=== PATIENT | female | born 1945 | race Caucasian/White ===

== ENCOUNTER 2021-05-09 16:33 | Emergency (ER) | payer MEDICARE | END 2021-05-09 17:16 | disposition home or self-care (01) | LOC: ER1 16:33 | DX: U07.1 COVID-19 (principal); E11.9 Type 2 diabetes mellitus without complications | CPT/HCPCS: 99283 ==

== ENCOUNTER 2021-05-13 11:04 | Observation (INO) | payer MEDICARE ==
[~2021-05-13] VITALS: Ht 160 cm; Wt 69.4 kg
[2021-05-13 13:53] LABS: HEMOGLOBIN 13.5 gm/dl (12.3-15.3); RED BLOOD COUNT 4.51 M/UL (4.00-5.10); WHITE BLOOD COUNT 11.7 K/UL (4.5-11.0)
[2021-05-13] MEDS ORDERED: LOSARTAN POTAS100 MG PO (16:35)
[2021-05-13] MEDS ORDERED: CLONIDINE1 EAC1 TD (16:35)
[2021-05-13] MEDS ORDERED: FUROSEMIDE40 MG PO (16:36)
[2021-05-13] MEDS ORDERED: TOPROL XL100 MG PO (16:36)
[2021-05-13] MEDS ORDERED: METFORMIN HCL500 MG PO (16:36)
[2021-05-13] MEDS ORDERED: VERAPAMIL HCL360 MG PO (16:37)
[2021-05-13] MEDS ORDERED: PROTONIX 40 MG40 M1 PO (16:37)
[2021-05-13] MEDS ORDERED: HYDRALAZINE HC100 MG PO (16:37)
[2021-05-13] MEDS ORDERED: CLONIDINE HCL0.1 MG PO (16:56)
[2021-05-13] MEDS ORDERED: ASCORBIC ACID500 MG PO (16:57)
[2021-05-13] MEDS ORDERED: ZINC50 M1 PO (16:57)
[2021-05-13] MEDS ORDERED: VITAMIN B-121000 MCG PO (16:57)
[2021-05-13] MEDS ORDERED: VITAMIN D 40400 UNIT PO (16:58)
[2021-05-14 05:30] LABS: HEMOGLOBIN 12.5 gm/dl (12.3-15.3); RED BLOOD COUNT 4.25 M/UL (4.00-5.10)
[2021-05-14 05:36] LABS: WHITE BLOOD COUNT 8.5 K/UL (4.5-11.0)
[2021-05-15] MEDS ORDERED: HYDRALAZINE HCL25 MG PO (16:45)
[2021-05-15] MEDS ORDERED: ELIQUIS 5 MG TAB5 MG PO (16:49)
[2021-05-15] MEDS ORDERED: ELIQUIS5 MG PO (16:49)
== END 2021-05-15 17:38 | disposition home or self-care (01) ==
LOC: ER1 11:04 → CDU 15:58 → M/S 15:58
PROVIDERS: Physician Assistant Medical; ADMIT Internal Medicine Infectious Disease
DX: U07.1 COVID-19 (principal); R55 Syncope and collapse; E11.22 Type 2 diabetes mellitus with diabetic chronic kidney disease; I12.9 Hypertensive chronic kidney disease with stage 1 through stage 4 chronic kidney disease, or unspecified chronic kidney disease; N18.30 Chronic kidney disease, stage 3 unspecified; N17.9 Acute kidney failure, unspecified; Z79.84 Long term (current) use of oral hypoglycemic drugs; Z79.899 Other long term (current) drug therapy; Z87.891 Personal history of nicotine dependence; Z88.0 Allergy status to penicillin; Z86.11 Personal history of tuberculosis
CPT/HCPCS: ECHO; 36415; 36600; 70450; 71045; 78580; 80048; 80053; 82550; 82553; 82803; 83036; 83735; 83874; 84443; 84484; 85025; 85379; 86140; 93005; 93306; 93880; 93970; 94640; 94760; 96372; 99285; A9540; G0378; J1650; U0002